=== PATIENT | female | born 1990 | race African-American/Black ===

== ENCOUNTER 2018-02-11 23:26 | Emergency (ER) | payer SELFPAY ==
[~2018-02-11] VITALS: Ht 162.6 cm; Wt 100.8 kg
[2018-02-12] MEDS ORDERED: KETOROLAC TROMETHAMINE 30 MG/ML VIAL IV STA (00:01)
== END 2018-02-12 01:45 | disposition home or self-care (01) ==
LOC: FSED 23:26
DX: R07.89 Other chest pain (principal); D64.9 Anemia, unspecified
CPT/HCPCS: 71046; 80053; 81003; 81025; 82553; 84484; 85025; 85379; 93005; 99283; J1885